=== PATIENT | female | born 1985 ===

== ENCOUNTER 2023-07-31 05:45 | Day surgery (SDC) | payer OTHER ==
[2023-07-28 10:15] LABS: HEMATOCRIT 38.5 % (36.0-45.00); MEAN CELL VOLUME 87.1 fL (80.00-100.00); MEAN CORPUSCULAR HEMOGLOBIN 30.2 pg (27.00-32.0); MEAN CORPUSCULAR HGB CONC 34.7 g/dl (32.0-36.0); PLATELET COUNT 292 K/uL (150-450); RED BLOOD COUNT 4.43 M/uL (4.00-6.00); RED CELL DISTRIBUTION WIDTH 13.1 % (11.5-14.5)
[2023-07-28 10:16] LABS: HEMOGLOBIN 13.4 g/dL (12.0-15.00)
[2023-07-28 10:49] LABS: BILIRUBIN TOTAL 0.49 mg/dL (0.3-1.2); CREATININE SERUM 0.8 mg/dL (0.55-1.02); GFR 81.16; GLOBULINA 3.4 G/DL (2.4-3.5); POTASSIUM 4.33 mEq/L (3.5-5.1); TOTAL PROTEIN 7.4 gm/dL (6.4-8.2)
[2023-07-28 11:00] LABS: PH,URINE 5.5 (5.0-8.0); URINE APPEARANCE Clear; URINE BILIRRUBIN Negative (NEGATIVE); URINE BLOOD Negative; URINE COLOR Yellow; URINE GLUCOSE Negative (NEGATIVE); URINE LEUKOCYTE Trace; URINE NITRATE Negative; URINE PROTEIN Negative (NEGATIVE); URINE UROBILINOGEN 0.2 E.U./dl
[2023-07-28 11:02] LABS: URINE BACTERIA 442.2 uL (0.0-1933); URINE EPITHELIAL CELLS 19.1 uL (0.0-38.8); URINE RBC 9.1 uL (0.0-20.8); URINE WBC 15.4 uL (0.0-23.2)
[2023-07-28 11:24] LABS: INR 0.98; PARTIAL THROMBOPLASTIN TIME 32.2 SECONDS (22.0-34.0); PROTHROMBIN TIME 10.3 SECONDS (9.0-11.5)
[~2023-07-31] VITALS: Ht 162.6 cm; Wt 66.7 kg
== END 2023-07-31 11:55 | disposition home or self-care (01) ==
LOC: SURG-SUITE 05:45 → O/R 05:45 → CIR.AMB 05:45 → EDSTATUS 08:00 → SURG-SUITE 08:00 → CIR.AMB 11:55 → O/R 11:55
PROVIDERS: ADMIT Obstetrics & Gynecology; ATTEND Obstetrics & Gynecology
DX: D39.12 Neoplasm of uncertain behavior of left ovary (principal); N83.292 Other ovarian cyst, left side; Z20.822 Contact with and (suspected) exposure to COVID-19